=== PATIENT | female | born 1980 | race Caucasian/White ===

== ENCOUNTER 2018-06-08 16:39 | Inpatient (IN) | payer OTHER ==
[~2018-06-08] VITALS: Ht 157.5 cm; Wt 67.1 kg
[~2018-06-08 16:39] MED LIST: PREN1TAB52 PO
[2018-06-16 09:20] VITALS: BP 96/61
[2018-06-16] MEDS ORDERED: LEVO50 PO (09:25)
[2018-06-16] MEDS ORDERED: CALC-1038 PO (09:25)
[2018-06-16] MEDS ORDERED: RINGERS SOLUTION,LACTATED 1,000 ML IV ONE (09:55)
[2018-06-16] MEDS ORDERED: CITRIC ACID/SODIUM CITRATE 30 ML SOLUTION UDCUP PO ONE (10:00)
[2018-06-16] MEDS ORDERED: METOCLOPRAMIDE HCL 5 MG/ML 2 ML VIAL IVP ONE (10:00)
[2018-06-16 10:36] LABS: BASOPHILS % (AUTO) 0.4 % (0.0-2.0); EOSINOPHILS % (AUTO) 0.2 % (1.0-6.0); HEMATOCRIT 38.5 % (36-46); HEMOGLOBIN 13.1 g/dL (12.0-16.0); LYMPHOCYTES # (AUTO) 0.9 K/uL (1.0-4.8); LYMPHOCYTES % (AUTO) 11.1 % (22.0-44.0); MEAN CORPUSCULAR HEMOGLOBIN 32.5 pg (26.0-34.0); MEAN CORPUSCULAR HGB CONC 33.9 G/dL (31.0-37.0); MEAN CORPUSCULAR VOLUME 96 fL (80-100); MONOCYTES # (AUTO) 0.7 K/uL (0.1-1.0); MONOCYTES % (AUTO) 8.1 % (2.0-9.0); NEUTROPHILS # (AUTO) 6.7 K/uL (1.8-7.7); NEUTROPHILS % (AUTO) 80.2 % (40.0-70.0); PLATELET COUNT (AUTO)-OB 199 K/uL (150-450); RED BLOOD CELL COUNT(AUTO) 4.02 MIL/uL (4.00-5.20); RED CELL DISTRIBUTION WIDTH 14.3 % (11.5-14.5)
[2018-06-16] MEDS ORDERED: DiphenhydrAMINE HCL 50 MG/ML VIAL IVP PRN ×2 (11:45→12:15)
[2018-06-16] MEDS ORDERED: ONDANSETRON HCL 4 MG/2 ML VIAL IVP PRN ×2 (11:45→12:15)
[2018-06-16] MEDS ORDERED: NALBUPHINE HCL 10 MG/ML VIAL IVP PRN ×3 (11:45→12:15)
[2018-06-16] MEDS ORDERED: MEPERIDINE HCL/PF 25 MG/0.5 ML AMP IVP PRN (11:45)
[2018-06-16] MEDS ORDERED: FentaNYL CITRATE-PF 100 MCG/2 ML VIAL IVP PRN ×2 (11:45→12:15)
[2018-06-16] MEDS ORDERED: ACETAMINOPHEN 1000 MG/ISO-OSM 100 ML IV ONE ×2 (11:45→12:13)
[2018-06-16] MEDS ORDERED: LANOLIN 7 GM OINTMENT TP PRN (12:00)
[2018-06-16] MEDS ORDERED: ACETAMINOPHEN/CODEINE 300-30 MG TABLET PO PRN (12:00)
[2018-06-16] MEDS ORDERED: NALOXONE HCL 0.4 MG/ML VIAL IVP PRN (12:15)
[2018-06-16] MEDS ORDERED: MORPHINE SULFATE 10 MG/ML SYRINGE IVP PRN (12:15)
[2018-06-16] MEDS: DEXTROSE 5%-0.45% SODIUM CHL 1,000 ML IV SCH ×2 (17:22→21:41)
[2018-06-16] MEDS ORDERED: OXYGEN THERAPY IH SCH ×3 (20:00)
[2018-06-16] MEDS: ACETAMINOPHEN 1000 MG/ISO-OSM 100 ML IV SCH (20:00)
[2018-06-17] MEDS: DEXTROSE 5%-0.45% SODIUM CHL 1,000 ML IV SCH ×2 (01:36→06:10)
[2018-06-17] MEDS: ACETAMINOPHEN 1000 MG/ISO-OSM 100 ML IV SCH (03:59)
[2018-06-17] MEDS ORDERED: FentaNYL CITRATE-PF 100 MCG/2 ML VIAL IVP ONE (05:09)
[2018-06-17] MEDS ORDERED: LIDOCAINE/PF 2% 5 ML VIAL IM ONE (05:09)
[2018-06-17] MEDS ORDERED: ONDANSETRON HCL 4 MG/2 ML VIAL IVP ONE (05:09)
[2018-06-17] MEDS ORDERED: MORPHINE SULFATE/PF 0.5 MG/ML 10 ML AMP IVP ONE (05:09)
[2018-06-17] MEDS ORDERED: OXYTOCIN 10 UNITS/ML VIAL IM ONE (05:09)
[2018-06-17] MEDS ORDERED: EPHEDrine SULFATE 50 MG/ML VIAL IM ONE (05:09)
[2018-06-17] MEDS: IBUPROFEN 800 MG TABLET PO SCH ×4 (05:29→23:29)
[2018-06-17] MEDS ORDERED: DEXTROSE 5%-0.45% SODIUM CHL 1,000 ML IV ONE (05:45)
[2018-06-17] MEDS: LEVOTHYROXINE SODIUM 50 MCG TABLET PO SCH (06:42)
[2018-06-17] MEDS: ACETAMINOPHEN/CODEINE 300-30 MG TABLET PO PRN ×2 (17:58→21:16)
[2018-06-17] MEDS: MAGNESIUM HYDROXIDE SUSPENSION 30 ML UDCUP PO SCH (21:15)
[2018-06-18] MEDS: IBUPROFEN 800 MG TABLET PO SCH ×4 (05:36→23:15)
[2018-06-18] MEDS: ACETAMINOPHEN/CODEINE 300-30 MG TABLET PO PRN (05:39)
[2018-06-18] MEDS: LEVOTHYROXINE SODIUM 50 MCG TABLET PO SCH (06:27)
[2018-06-18] MEDS: MAGNESIUM HYDROXIDE SUSPENSION 30 ML UDCUP PO SCH ×2 (08:14→21:00)
[2018-06-19] MEDS: IBUPROFEN 800 MG TABLET PO SCH ×2 (05:18→11:26)
[2018-06-19] MEDS: LEVOTHYROXINE SODIUM 50 MCG TABLET PO SCH (05:59)
[2018-06-19] MEDS ORDERED: IBUP-2071 PO (11:01)
[2018-06-19] MEDS ORDERED: ACET1TAB12 PO (11:01)
[2018-06-19] MEDS ORDERED: DSS100 PO (11:01)
== END 2018-06-19 11:45 | disposition home or self-care (01) | DRG 766 ==
LOC: 4S 06-16 08:53 → OBSVTOIN 06-16 08:53 → 4S 06-16 13:38
PROVIDERS: ADMIT Obstetrics & Gynecology; ATTEND Obstetrics & Gynecology
PROC: 10D00Z1 Extraction of Products of Conception, Low, Open Approach (ICD-10-PCS; principal; 2018-06-16)
DX: O34.211 Maternal care for low transverse scar from previous cesarean delivery (principal); Z3A.37 37 weeks gestation of pregnancy; Z37.0 Single live birth; O09.523 Supervision of elderly multigravida, third trimester
CPT/HCPCS: 86850; 86900; 86901; 87081; J0131; J0690; J2274; J2405; J2590; J2765; J3010; J3490; J7120